=== PATIENT | female | born 1995 | race Caucasian/White ===

== ENCOUNTER → 2022-04-15 | Day surgery (SDC) | payer OTHER ==
[~2022-04-15] VITALS: Ht 167.6 cm; Wt 70.3 kg
[~2022-04-15] MED LIST: BLISOVI FE 1-21 EACH PO; MOTRIN600 MG PO
[2022-04-15 09:39] LABS: HCG (URINE) SCREEN NEGATIVE (NEGATIVE)
[2022-04-15 10:07] LABS: BASOPHIL 0.6 % (0-2); EOSINOPHIL 2.7 % (0-5); HCT 42.7 % (37.0-47.0); HGB 14.1 g/dl (12.5-16.0); MCH 30.2 pg (25.0-31.0); MCV 91.4 fL (78.0-100.0); MONOCYTE 5.1 % (0-12); MPV 11.1 fL (6.0-9.5); NEUTROPHIL 53.4 % (41-80); NRBC 0; PLT 320 K/uL (150-400); RBC 4.67 M/uL (4.20-5.40); RDW 12.6 % (11.5-14.0); WBC 6.7 K/uL (4.0-10.5)
== END | disposition home or self-care (01) ==
LOC: FAS 08:24
PROVIDERS: Oral & Maxillofacial Surgery
DX: K02.9 Dental caries, unspecified (principal); K01.1 Impacted teeth; F41.8 Other specified anxiety disorders
CPT/HCPCS: D7210; D7240; 36415; 84703; 85025; J1100; J2250; J2704; J2710; J3010; J7120